=== PATIENT | male | born 1980 | race Caucasian/White ===

== ENCOUNTER 2016-10-15 08:23 | Emergency (ER) | payer BC, OTHER ==
--- NOTE | 2016-10-15 09:41 | UC ---
Throat Pain/Nasal Blade HPI - HPI Summary HPI Summary: ST and fever, started yesterday. ST is intense today. No known Strep contacts. No rash. No cough, mild sinus congestion. TErrible headache, body aches. - History of Current Complaint Chief Complaint: UCRespiratory Stated Complaint: ST/FEVER Time Seen by Provider: 10/15/16 08:54 Hx Obtained From: Patient Onset/Duration: Gradual Onset, Lasting Days - 2 Severity: Moderate Cough: Nonproductive - mild, dry Associated Signs & Symptoms: Positive: Dysphagia, Hoarseness, Nasal Discharge - clear, Fever. Negative: Sinus Discomfort - Epiglottits Risk Factors Epiglottis Risk Factors: Negative - Allergies/Home Medications Allergies/Adverse Reactions: Allergies Allergy/AdvReac Type Severity Reaction Status Date / Time No Known Allergies Allergy Verified 10/15/16 09:15 Home Medications: Home Medications Ibuprofen TAB* [Motrin TAB* 600 MG] 600 mg PO BID PRN 10/15/16 [History Confirmed 10/15/16] PMH/Surg Hx/FS Hx/Imm Hx Previously Healthy: Yes - Surgical History Surgical History: Yes Surgery Procedure, Year, and Place: salivary gland - Family History Known Family History: Negative: Respiratory Disease - no asthma - Social History Occupation: Employed Full-time Lives: With Family Alcohol Use: Rare Substance Use Type: None Smoking Status (MU): Never Smoked Tobacco Review of Systems Constitutional: Fever, Chills, Fatigue Skin: Negative Eyes: Negative ENT: Sore Throat, Nasal Discharge Respiratory: Cough - mild, dry Cardiovascular: Negative Gastrointestinal: Negative Genitourinary: Negative Motor: Negative Neurovascular: Negative Musculoskeletal: Myalgia Neurological: Headache, Weakness - general Psychological: Negative All Other Systems Reviewed And Are Negative: Yes Physical Exam Triage Information Reviewed: Yes Appearance: Well-Appearing, No Pain Distress, Well-Nourished Vital Signs: Initial Vital Signs Temp 100.9 F 10/15/16 09:03 Pulse 90 10/15/16 09:03 Resp 18 10/15/16 09:03 BP 98/63 10/15/16 09:03 Pulse Ox 99 10/15/16 09:03 Vital Signs Reviewed: Yes Eye Exam: Normal ENT: Positive: Hearing grossly normal, Pharyngeal erythema - marked, Nasal congestion, TMs normal, Tonsillar swelling, Tonsillar exudate, Muffled/hoarse voice - hoarse. Negative: Trismus Neck exam: Normal Neck: Positive: Supple Respiratory Exam: Normal Respiratory: Positive: Lungs clear, Normal breath sounds, No respiratory distress, No accessory muscle use Cardiovascular Exam: Normal Musculoskeletal Exam: Normal Neurological Exam: Normal Psychological Exam: Normal Skin Exam: Normal Diagnostics - Laboratory Diagnostic Studies Completed/Ordered: Strep test: invalid Throat Pain/Nasal Course/Dx - Differential Dx/Diagnosis Differential Diagnosis/HQI/PQRI: Pharyngitis, Sinusitis, URI Provider Diagnoses: pharyngitis Discharge - Discharge Plan Condition: Stable Disposition: HOME Prescriptions: Amoxicillin (*) 875 mg PO BID #20 tab Patient Education Materials: Strep Throat (ED) Referrals: Vladimir Holbrook MD [Primary Care Provider] -
[2016-10-15 09:45] VITALS: BP 136/67
== END 2016-10-15 09:46 | disposition home or self-care (01) ==
LOC: UCCORT 08:23
DX: J02.8 Acute pharyngitis due to other specified organisms (principal); R50.9 Fever, unspecified; R13.19 Other dysphagia; R53.83 Other fatigue; R09.81 Nasal congestion
CPT/HCPCS: 99212; G0463